=== PATIENT | female | born 1975 | race Caucasian/White ===

== ENCOUNTER 2023-12-03 08:43 | Outpatient (AMB) | payer MEDICARE, OTHER, MEDICAID, SELFPAY ==
[2023-12-03 08:55] VITALS: BP 118/70; PULSE 82; TEMP 36.7; O2SAT 96; BMI 30.3
--- NOTE | 2023-12-03 08:55 | MHC.OFFWIV ---
Intake Vital Signs 12/03/23 08:55 Height 4 ft 11 in Weight 150 lb BMI 30.3 BP 118/70 Blood Pressure Location Lt brachial Position Sitting Pulse 82 Pulse Source Pulse Oximeter Temp 98.0 F Temp Source Temporal Artery Scan Pulse Oximetry (%) 96 Oxygen Delivery Method Room Air Intake Visit Reasons: EP face swelling Intake Note: pt is here today for swelling face started 3 days ago Patient Tobacco Use Status: Never used Tobacco Allergies amoxicillin Allergy (Severe, Verified 12/03/23 08:57) rash tramadol [TRAMADOL] Adverse Reaction (Unknown, Verified 12/03/23 08:57) RASH Tramadol HCl Allergy (Unknown, Uncoded 12/03/23 08:57) rash Do you need a note to return to daycare/school/sports/work: No HPI HPI Comments History of Present Illness Details Patient presents to the walk-in today for sick visit Endorses right-sided facial pain and swelling secondary to dental infection Is awaiting appointment for dentist to remove her bottom teeth Denies fever, difficulty swallowing, throat swelling PFSH Social History Patient Tobacco Use Status: Never used Tobacco Review of Systems Const All systems reviewed & are unremarkable except as noted in HPI and below Physical Exam Vital Signs: Last Vital Signs Temp 98.0 F 12/03/23 08:55 Pulse 82 12/03/23 08:55 BP 118/70 12/03/23 08:55 Pulse Ox 96 12/03/23 08:55 Oxygen Delivery Method Room Air 12/03/23 08:55 BMI result Body Mass Index 30.3 General: awake, alert, oriented. Answers questions appropriately. Fully engaged in examination. Skin: warm, dry, intact HEENT: Normocephalic. Hearing intact. Right-sided facial swelling, no lymphadenopathy, right lower teeth notable for decay, gum swelling right lower, tenderness to palpation right lower gums Cardiac: External chest normal in appearance. Respiratory: No cough, audible wheezing or stridor. Abdomen: without gross distension. MS: No obvious swelling or deformities. Neurological: Oriented to person, place, time and situation. Thought process intact. Psychiatric: Appropriate mood and affect. Good judgment and insight. Assessment & Plan Assessment & Plan (1) Dental abscess: Code(s): K04.7 - Periapical abscess without sinus Plan Clindamycin 300 mg p.o. t.i.d. x7 days Continue with nonsteroidal anti-inflammatory medications as needed Follow-up with dentist as planned Follow up with the walk-in as needed Patient advised on red flag symptoms and when to seek treatment in the emergency room. If no improvement after 48 hours, worsening symptoms after 24 hours of being on the antibiotics, difficulty swallowing, difficulty breathing, unable to manage saliva, sudden worsening swelling, fevers, chills Medications: New clindamycin HCl 300 mg PO TID 7 days 21 caps 0RF Coding Level of Care Code Est Pt Level 3 (97381) Diagnoses Dental abscess K04.7
== END 2023-12-03 09:54 | disposition home or self-care (01) ==
PROVIDERS: PCP Internal Medicine; Visit Provider Registered Nurse Emergency
DX: K04.7 Periapical abscess without sinus (principal)
CPT/HCPCS: 99213

== ENCOUNTER 2024-04-19 11:29 | Outpatient (AMB) | payer MEDICARE, OTHER, MEDICAID, SELFPAY ==
--- NOTE | 2024-04-19 11:49 | MHC.OFFWIV ---
Intake Vital Signs 04/19/24 11:50 Height 4 ft 11 in Weight 150 lb BMI 30.3 BP 110/68 Blood Pressure Location Rt brachial Position Sitting Pulse 83 Pulse Source Pulse Oximeter Temp 97.8 F Temp Source Oral Pulse Oximetry (%) 97 Intake Visit Reasons: EP- Dizziness and weakness Intake Note: pt is here for c/o dizziness, weak, no appetite when standing up and on and off not constant. patient states its been going on for about 2 to 3 weeks Patient Tobacco Use Status: Never used Tobacco Allergies amoxicillin Allergy (Severe, Verified 04/19/24 12:15) rash tramadol [TRAMADOL] Adverse Reaction (Unknown, Verified 04/19/24 12:15) RASH Tramadol HCl Allergy (Unknown, Uncoded 12/03/23 08:57) rash Medication List - Last Reconciled 04/19/24 by Rufina Eldridge, [facility]- buprenorphine-naloxone 4-1 mg 4 mg sublingual DAILY tizanidine mg PO trazodone 50 mg PO BEDTIME Do you need a note to return to daycare/school/sports/work: No HPI HPI Comments History of Present Illness Details 48-year-old female who reports that she has been having menstrual irregularities. Reports that she started her menstrual bleed however it only lasted for 4 days. Overall she felt nauseous and dizzy a few days later she started with her period again and reports that it was an abnormal bleed. The last bleed was April 04 to . She generally feels weak and dizzy. She is on buprenorphine and naloxone. Unsure of her last EKG. She has been hydrating liberally with no improvement in her symptoms. She denies any fever, chills, chest pain, respiratory symptoms. Exam Awake alert oriented, chronically ill-appearing, in no acute distress PERRLA, EOMI Bradycardic, regular rhythm, no orthostasis with position changes Lung sounds clear to auscultation bilat Neuro exam within normal limits Plan Initially the plan was to check a urinalysis and urine test. However patient was unable to void. Therefore she was provided water. While waiting for her to be able to avoid the EKG was complete which showed QT prolongation and bradycardia. Given the findings on the EKG I have advised her to seek care in the emergency room. She would like to go to [facility]. She is here with her today he was able to transport her immediately to the hospital. The urinalysis and urine test was deferred given this finding today. The patient was encouraged to follow up with her primary care provider after her workup at the hospital. I did provide her with a copy of her EKG and updraft version of today's note to take with her to [facility]. EKG shows sinus bradycardia with prolonged QT, 46 BPM QT 552, QTCbaz 483 This note is constructed using voice recognition software. While every effort has been made to ensure accuracy in commercial helicopter [employer], still errors may have been included Sometimes, these errors may affect the content or meaning of the given sentence . Total time spent caring for the patient today was 40 minutes. This includes time spent before the visit reviewing the chart, time spent during the visit, and time spent after the visit on documentation [facility] Social History Patient Tobacco Use Status: Never used Tobacco Physical Exam Vital Signs: Last Vital Signs Temp 97.8 F 04/19/24 11:50 Pulse 83 04/19/24 11:50 BP 110/68 04/19/24 11:50 Pulse Ox 97 04/19/24 11:50 BMI result Body Mass Index 30.3 Assessment & Plan Assessment & Plan (1) Prolonged Q-T interval on ECG: Code(s): R94.31 - Abnormal electrocardiogram [ECG] [EKG] Plan: . (2) Dizziness: Code(s): R42 - Dizziness and giddiness Plan: . (3) Weakness: Code(s): R53.1 - Weakness Plan: . (4) Irregular periods: Code(s): N92.6 - Irregular menstruation, unspecified Plan . Orders: Orders AMB EKG-In Office Today Z13.6 - Encounter for screening for cardiovascular disorders Coding Level of Care Code Est Pt Level 5 (47592) Diagnoses Prolonged Q-T interval on ECG R94.31 Dizziness R42 Weakness R53.1 Irregular periods N92.6
[2024-04-19 11:50] VITALS: BP 110/68; PULSE 83; TEMP 36.6; O2SAT 97; BMI 30.3
== END 2024-04-19 13:19 | disposition home or self-care (01) ==
PROVIDERS: PCP Internal Medicine; Visit Provider Nurse Practitioner Family
DX: R94.31 Abnormal electrocardiogram [ECG] [EKG] (principal); R42 Dizziness and giddiness; R53.1 Weakness; N92.6 Irregular menstruation, unspecified

== ENCOUNTER → 2024-04-19 11:29 | Outpatient (BNVA) | payer OTHER, MEDICARE, MEDICAID, SELFPAY | PROVIDERS: PCP Internal Medicine; Visit Provider Nurse Practitioner Family | DX: R94.31 Abnormal electrocardiogram [ECG] [EKG] (principal); R42 Dizziness and giddiness; R53.1 Weakness; N92.6 Irregular menstruation, unspecified | CPT/HCPCS: 93005; 99212 ==